=== PATIENT | male | born 1960 | race Caucasian/White ===

== ENCOUNTER 2024-02-23 14:19 | Outpatient (AMB) | payer MEDICARE, SELFPAY ==
--- NOTE | 2024-02-23 14:31 | MHC.OFFVIS ---
Vital Signs 02/23/24 14:33 Height 5 ft 10 in Weight 233 lb 14.567 oz BMI 33.6 BP 112/72 Blood Pressure Location Rt brachial Position Sitting Pulse 52 Pulse Source Pulse Oximeter Pulse Oximetry (%) 97 Oxygen Delivery Method Room Air Intake Visit Reasons: RA Intake Note: New patient presents today for consult, referred by PCP Heather Jason. C/o joint pain in hands, arms, legs Has not seen Rheum in 15 years in [place] Recent labs done with PCP Document Management Analyst Required: No Accompanied by: Self / Same As Patient Allergies amoxicillin Allergy (Verified 02/23/24 14:37) Unknown methotrexate Adverse Reaction (Verified 02/23/24 14:38) Changes in skin color Medication List - Last Reconciled 02/23/24 by Lois Gary MD azithromycin 500 mg PO DAILY evolocumab (Repatha Syringe) mg subcut Q2W fluoxetine 20 mg PO DAILY losartan 50 mg PO DAILY tirzepatide (Mounjaro) mg subcut HPI Comments Details: This is a 63-year-old male who presents for evaluation of rheumatoid arthritis. He states that he was diagnosed with rheumatoid arthritis around 15 years ago when he was having multiple swollen and tender joints. He was started on methotrexate by editor greeting card and states that his skin turned yellow. He stopped it after taking it for 1 week. Since then he has not been evaluated by editor greeting card. He states that he used to get cortisone shots in his hands intermittently by a hand surgeon. The injections usually help. Most recent injection was about 2 years ago. States that recently has been having will joint pain and stiffness including his hands, wrists, elbows, knees, ankles. Morning stiffness of hands lasts about an hour. Denies any weight loss or fevers recently. States that his father had lupus. He thinks his mother might have had lupus but he has not sure. He denies any history of DVT/PE. [facility] Medical History Rheumatoid arthritis History of kidney stones Hypertension Type 2 diabetes mellitus Depression Surgical History Hx of lithotripsy H/O wisdom tooth extraction S/P trigger finger release History of carpal tunnel release Family History Mother Arthritis Father Arthritis Lupus Social History Alcohol intake: current Alcohol intake frequency: a few times a week Tobacco use type: Smokeless Tobacco Current occupational status: retired Current occupation: retired [employer] Const Reports fatigue, Denies fever(s), Reports weakness and Denies weight loss ENT Details: Mouth sores Resp Reports cough Neuro Reports weakness Psych Reports abnormal sleep pattern and Reports anxiety Endo Reports fatigue Physical Exam Vital Signs: Last Vital Signs Pulse 52 02/23/24 14:33 BP 112/72 02/23/24 14:33 Pulse Ox 97 02/23/24 14:33 Oxygen Delivery Method Room Air 02/23/24 14:33 BMI result Body Mass Index 33.6 Const General: cooperative, healthy appearing and comfortable Nutritional Appearance: obese Orientation/consciousness: patient oriented x3 Limitations: no limitations HEENT Head: Yes normocephalic and Yes atraumatic Mouth: moist mucous membranes Resp Effort & Inspection: normal respiratory effort and able to speak in complete sentences Auscultation: clear to auscultation bilaterally Cardio Rate: regular rate Rhythm: regular rhythm Neuro General: patient oriented x3 Extrem Other: Minimal swelling of the radial aspect of left wrist, mildly tender to palpation Left wrist pain with flexion and extension Negative MCP squeeze test left hand Right wrist pain with full flexion and extension Bilateral elbow flexion contracture Normal range of motion of shoulders but stiff Bilateral knee pain with any range of motion Left dorsal foot tenderness Negative MTP squeeze test bilaterally No ankle swelling or tenderness bilaterally Assessment & Plan Assessment & Plan (1) Rheumatoid arthritis: Code(s): M06.9 - Rheumatoid arthritis, unspecified Category: Medical Qualifiers: Rheumatoid arthritis location: multiple sites Rheumatoid factor presence: unspecified presence Qualified Code(s): M06.9 - Rheumatoid arthritis, unspecified Plan: This is a 63-year-old male who presents for evaluation of rheumatoid arthritis. States that he was diagnosed with a about 15 years ago and took methotrexate for 1 week and stopped it due to which discoloration of his skin. Will order labs to evaluate disease activity and screen for overlap with other autoimmune rheumatic diseases. X-rays of involved joints. Follow-up in 6-7 weeks Plan I spent 48 minutes reviewing patient's chart, evaluating patient, ordering diagnostic workup, counseling patient and documenting in the chart Orders: Orders Anti Extractable Nuclear Ag Today M32.9 - Systemic lupus erythematosus, unspecified C Reactive Protein Today M32.9 - Systemic lupus erythematosus, unspecified DNA Double Stranded-Crithidia Today M32.9 - Systemic lupus erythematosus, unspecified Erythrocyte Sedimentation Rate Today M32.9 - Systemic lupus erythematosus, unspecified Sjogren's Antibodies Today M32.9 - Systemic lupus erythematosus, unspecified UA w Microscopic Today M32.9 - Systemic lupus erythematosus, unspecified Complete Blood Count Auto Diff Today M32.9 - Systemic lupus erythematosus, unspecified T Spot TB Today Z11.7 - Encounter for testing for latent tuberculosis infection Cyclic Citrullinated Peptide Today M06.9 - Rheumatoid arthritis, unspecified XR ankle LT min 3V Today M06.9 - Rheumatoid arthritis, unspecified XR foot LT min 3V Today M06.9 - Rheumatoid arthritis, unspecified XR foot RT min 3V Today M06.9 - Rheumatoid arthritis, unspecified XR hand wrist LT Today M06.9 - Rheumatoid arthritis, unspecified XR knee LT 3V Today M06.9 - Rheumatoid arthritis, unspecified XR hip LT min 2V Today M06.9 - Rheumatoid arthritis, unspecified XR shoulder LT min 2V Today M06.9 - Rheumatoid arthritis, unspecified LOAN Reflex Titer and Pattern Today M32.9 - Systemic lupus erythematosus, unspecified Anti DNA DS Antibody Today M32.9 - Systemic lupus erythematosus, unspecified Complement C3 Today M32.9 - Systemic lupus erythematosus, unspecified Complement C4 Today M32.9 - Systemic lupus erythematosus, unspecified Protein Creatinine Ratio, Ur Today M32.9 - Systemic lupus erythematosus, unspecified Comprehensive Met. Panel Today M32.9 - Systemic lupus erythematosus, unspecified Hepatitis A,B,C Profile Today Z11.59 - Encounter for screening for other viral diseases Uric Acid Today M10.9 - Gout, unspecified Immunofixation Pnl, Serum Today M32.9 - Systemic lupus erythematosus, unspecified Protein Electrophoresis, Serum Today M32.9 - Systemic lupus erythematosus, unspecified Rheumatoid Factor Today M06.9 - Rheumatoid arthritis, unspecified XR ankle RT min 3V Today M06.9 - Rheumatoid arthritis, unspecified XR elbow LT min 3V Today M06.9 - Rheumatoid arthritis, unspecified XR elbow RT min 3V Today M06.9 - Rheumatoid arthritis, unspecified XR hand wrist RT Today M06.9 - Rheumatoid arthritis, unspecified XR hip RT min 2V Today M06.9 - Rheumatoid arthritis, unspecified XR knee RT 3V Today M06.9 - Rheumatoid arthritis, unspecified XR knee standing BI Today M06.9 - Rheumatoid arthritis, unspecified XR lumbar spine 4V min Today M06.9 - Rheumatoid arthritis, unspecified XR shoulder RT min 2V Today M06.9 - Rheumatoid arthritis, unspecified Coding Level of Care Code New Pt Level 4 (59764) Diagnoses Rheumatoid arthritis involving multiple sites, unspecified whether rheumatoid factor present M06.9 Rheumatoid arthritis location: multiple sites Rheumatoid factor presence: unspecified presence
[2024-02-23 14:33] VITALS: BP 112/72; PULSE 52; O2SAT 97; BMI 33.6
== END 2024-02-23 16:15 | disposition home or self-care (01) ==
PROVIDERS: PCP Registered Nurse; Visit Provider Student in an Organized Health Care Education/Training Program
DX: M06.9 Rheumatoid arthritis, unspecified (principal)
CPT/HCPCS: 99204

== ENCOUNTER → 2024-02-23 14:19 | Outpatient (BNVA) | payer MEDICARE, SELFPAY | PROVIDERS: PCP Registered Nurse; Visit Provider Student in an Organized Health Care Education/Training Program | DX: M06.9 Rheumatoid arthritis, unspecified (principal); M32.9 Systemic lupus erythematosus, unspecified; M10.9 Gout, unspecified; Z11.59 Encounter for screening for other viral diseases; Z11.7 Encounter for testing for latent tuberculosis infection | CPT/HCPCS: 99202 ==